=== PATIENT | female | born 1975 | race Caucasian/White ===

== ENCOUNTER 2017-03-25 10:32 | Emergency (ER) | payer BC | END 2017-03-25 10:45 | disposition home or self-care (01) | LOC: ER 10:32 | DX: S60.460A Insect bite (nonvenomous) of right index finger, initial encounter (principal); T78.40XA Allergy, unspecified, initial encounter; Z91.048 Other nonmedicinal substance allergy status; Z88.8 Allergy status to other drugs, medicaments and biological substances; W57.XXXA Bitten or stung by nonvenomous insect and other nonvenomous arthropods, initial encounter | CPT/HCPCS: 99283 ==